=== PATIENT | male | born 1965 | race Caucasian/White ===

== ENCOUNTER 2023-03-17 19:32 | Emergency (ER) | payer OTHER, SELFPAY ==
[2023-03-17 19:35] VITALS: BP 167/88; PULSE 99; RESP 30; TEMP 37.6; O2SAT 96; BMI 42.6
--- NOTE | 2023-03-17 19:45 | XR_ITS ---
The [address] [address] Patient Name: ALEXANDER SANCHEZ MRN: [id number] date: 1965 Sex: M Assigned Patient Location: ER Current Patient Location: ER Accession/Order Number: [id number] Exam Date: 03/17/2023 20:11 Report Date: 03/17/2023 20:54 At the request of: AMBERLY STACK Procedure: XR hip RT min 2V IMAGES REVIEWED: XR hip RT min 2V COMPARISON: None available. CLINICAL INDICATION: atraumatic pain FINDINGS/IMPRESSION: Mild degenerative change right hip with chondrocalcinosis. No acute findings. Electronically authenticated by: KRYSTA VERDUZCO Date: 03/17/2023 20:54
--- NOTE | 2023-03-17 19:45 | XR_ITS ---
The [address] [address] Patient Name: ALEXANDER SANCHEZ MRN: [id number] date: 1965 Sex: M Assigned Patient Location: ER Current Patient Location: ER Accession/Order Number: [id number] Exam Date: 03/17/2023 20:11 Report Date: 03/17/2023 20:53 At the request of: AMBERLY STACK Procedure: XR lumbar spine 2-3V EXAM: XR lumbar spine 2-3V HISTORY: Low back pain and right leg pain for 2 weeks. COMPARISON: None. TECHNIQUE: AP and lateral views of the lumbar spine were obtained. FINDINGS: There is mild straightening of the normal lordotic curvature in the lumbar spine. The vertebral bodies are aligned and the vertebral body heights are intact. There are small osteophytes arising from the vertebral bodies. There is mild to moderate narrowing at the L5-S1 disc level and the disc spaces are otherwise relatively intact. Mild hypertrophic changes are seen in the facets throughout the mid and lower lumbar spine. The posterior elements are intact. The posterior soft tissues are intact. Vascular calcifications are seen anterior to the spine. XR/XR lumbar spine 2-3V IMPRESSION: There is no evidence of an acute fracture or anterior spondylolisthesis. Some degenerative changes are present, as described. Comparison with a previous study may be helpful in confirming the chronicity of these findings. Electronically authenticated by: EDWARD DUFF Date: 03/17/2023 20:53
--- NOTE | 2023-03-17 19:46 | ED.EXTPRO1 ---
HPI - Extremity Problem General Chief complaint: Extremity Problem, Nontraumatic Stated complaint: Lower Pain Time Seen by Provider: 03/17/23 19:39 Source: patient Mode of arrival: walk-in History of Present Illness HPI Narrative: 58-year-old male presents for complaints of right upper leg pain. There is a point on his buttock and then eight point on the posterior lower part of the upper leg. There's been no trauma and it's been there for two weeks. No calf pain or swelling. No foot pain or ankle pain. No numbness or weakness in his foot or ankle. He has back pain every morning. He was worried he might have a blood clot. No chest pain or shortness of breath. Related Data Home Medications Medication Instructions Recorded Confirmed tamsulosin 0.4 mg capsule 0.4 mg PO BID 03/17/23 03/17/23 Previous Rx's Medication Instructions Recorded hydrocodone 5 mg-acetaminophen 325 1 tab PO Q6H PRN pain 5 days #20 03/17/23 mg tablet tabs Allergies Allergy/AdvReac Type Severity Reaction Status Date / Time No Known Drug Allergies Allergy Verified 03/17/23 19:40 Review of Systems ROS Narrative A ten point review of systems is negative except as noted above. Exam Narrative Exam Narrative: Nurses note and vital signs reviewed and patient is not hypoxic. General: The patient appears mildly uncomfortable. Skin: Warm, dry, no pallor noted. There is no rash noted. Head: Normocephalic, atraumatic Eye: Normal conjunctiva, no drainage Ears, Nose, Mouth, and Throat: oral mucosa is moist. Nares patent. Cardiovascular: Regular Rate and Rhythm Respiratory: Patient is in no distress, no accessory muscle use, lungs are clear to auscultation, no wheezing, rales or rhonchi Back: non-tender, no bruise or rash or abrasion GI: soft and nontender Musculoskeletal: The patient has no evidence of calf tenderness, no pitting edema, symmetrical pulses noted bilaterally. no swelling in the right upper leg or right lower leg. No calf tenderness or swelling. He has no bruising or rash on his leg. Neurological: A&O, normal speech Psychiatric: Cooperative Constitutional Vital Signs, click to edit/add: Last Vital Signs Temp 99.7 F 03/17/23 19:35 Pulse 94 H 03/17/23 20:47 Resp 20 03/17/23 20:47 BP 126/68 03/17/23 20:47 Pulse Ox 97 03/17/23 20:47 O2 Del Method Room Air 03/17/23 20:47 Course Vital Signs Vital signs: Vital Signs Temperature 99.7 F 03/17/23 19:35 Pulse Rate 99 H 03/17/23 19:35 Respiratory Rate 30 H 03/17/23 19:35 Blood Pressure 167/88 H 03/17/23 19:35 Pulse Oximetry 96 03/17/23 19:35 Oxygen Delivery Method Room Air 03/17/23 19:35 Temperature 99.7 F 03/17/23 19:35 Pulse Rate 94 H 03/17/23 20:47 Respiratory Rate 20 03/17/23 20:47 Blood Pressure 126/68 03/17/23 20:47 Pulse Oximetry 97 03/17/23 20:47 Oxygen Delivery Method Room Air 03/17/23 20:47 MDM - Extremity (Nontraumatic) MDM Narrative Medical decision making narrative: x-rays show mild degenerative changes. D-dimer is elevated. We will bring the patient back in the morning for Doppler ultrasound. He was given subcutaneous Lovenox injection tonight and prescribed [place]. Treatment diagnosis and follow up are discussed with patient and his family. Differential Diagnosis Differential diagnosis: Likely other (sciatica, deep vein thrombosis, degenerative changes) Lab Data Attestation: I reviewed the patient's lab results. Labs: Lab Results 03/17/23 Range/Units 20:06 D-Dimer 3.62 H* (<=0.59) mg/L FEU Imaging Data x-ray of lumbar spine and hip: Radiologist's impression: ITS Impressions Lumbar Spine X-Ray 03/17/23 19:45 IMPRESSION: There is no evidence of an acute fracture or anterior spondylolisthesis. Some degenerative changes are present, as described. Comparison with a previous study may be helpful in confirming the chronicity of these findings. Electronically authenticated by: EDWARD DUFF Date: 03/17/2023 20:53 Discharge Plan Discharge Chief Complaint: Extremity Problem, Nontraumatic Clinical Impression: Leg pain, right Patient Disposition: Home, Self-Care Time of Disposition Decision: 21:07 Condition: Good Mode of Transportation: Private Vehicle Prescriptions / Home Meds: New hydrocodone-acetaminophen 5-325 mg tablet 1 tab PO Q6H PRN (Reason: pain) 5 Days Qty: 20 0RF No Action tamsulosin 0.4 mg capsule 0.4 mg PO BID Instructions: Leg Pain (ED) Additional Instructions: ultrasound of the leg in the morning. Arrive at 8:45 AM. It is scheduled for 9 AM. Stand Alone Forms: Portal Instructions Referrals: NEAL SUÁREZ [Primary Care Provider] - 1 week
[2023-03-17] MEDS: KETOROLAC TROMETHAMINE 60 MG/2 ML VIAL IM (19:58)
[2023-03-17 20:28] LABS: D Dimer 3.62 mg/L FEU (<=0.59)
--- NOTE | 2023-03-17 20:40 | PC.NURSE ---
Marianna from lab called with D-dimer of 3.62 Dr [email or web address]
[2023-03-17 20:47] VITALS: BP 126/68; PULSE 94; RESP 20; O2SAT 97
[2023-03-17] MEDS: ENOXAPARIN SODIUM 100 MG/ML SYRINGE 130 MG SUBQ (21:41)
[2023-03-17] MEDS: HYDROCODONE/ACET 5-325 MG TABLET 1 TAB PO (21:41)
== END 2023-03-17 21:47 | disposition home or self-care (01) ==
PROVIDERS: Emergency Provider Emergency Medicine; PCP Family Medicine
DX: M79.604 Pain in right leg (principal); R79.1 Abnormal coagulation profile
CPT/HCPCS: 36415; 72100; 73502; 85378; 96372; 99285; J1650; J1885

== ENCOUNTER 2023-03-18 08:50 | Outpatient (OUT) | payer OTHER, SELFPAY ==
--- OUTSIDE RECORDS SUMMARY | 2023-03-18 08:55 | XMS_ITS | CCD ---
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 Name Role Phone WEST, DR NEAL Hebert Consulting Unavailable SHAIKH JOHNSTON Admitting Unavailable SHAIKH JOHNSTON Attending Unavailable DR PAULO MEAD Consulting Unavailable DR SHIRA DRAKE Consulting Unavailable AMBERLY STACK Consulting Unavailable SHAIKH JOHNSTON Consulting Unavailable Problems Problem Classification Problem Date Documented Da te Episodic/Chronic Diabetes mellitus without complication (1 source) Hyperglycemia, unspecified; Translations: [HYPERGLYCEMIA UNSPECIFIED] Onset: 12-02-2020 Episodic Other circulatory disease (1 source) Elevated blood-pressure reading, without diagnosis of hypertension; Translations: [ELEVATED BP READING W/O DX HTN] Onset: 12-02-2020 Episodic Other nervous system disorders (1 source) Other chronic pain; Translations: [OTHER CHRONIC PAIN] Onset: 12-02-2020 Chronic Other nutritional; endocrine; and metabolic disorders (1 source) Obesity, unspecified; Translations: [OBESITY UNSPECIFIED] Onset: 12-02-2020 Chronic Other nutritional; endocrine; and metabolic disorders (1 source) Body mass index (BMI) 39.0-39.9, adult; Translations: [BODY MASS INDEX BMI 39.0-39.9 ADULT] Onset: 12-02-2020 Chronic Pneumonia (except that caused by tuberculosis or sexually transmitted disease) (1 source) Pneumonia (except that caused by tuberculosis or sexually transmitted disease); Translations: [PNEUMONIA D/T CORONAVIRUS DIS 2019] Onset: 12-02-2020 Respiratory failure; insufficiency; arrest (adult) (1 source) Acute respiratory failure with hypoxia; Translations: [ACUTE RESPIRATORY FAIL W/HYPOXIA] Onset: 12-02-2020 Episodic Spondylosis; intervertebral disc disorders; other back problems (1 source) Low back pain; Translations: [LOW BACK PAIN] Onset: 12-02-2020 Episodic Viral infection (3 sources) COVID-19; Translations: [COVID-19] Onset: 11-19-2020 Results Test Name Value Interpretation Reference Range Facil ity XR lumbar spine 2-3V*on XR lumbar spine 2-3V* [facility] [place] [address] [place] [address] XRay Report Signed Patient: Héctor Serra MR#: [id number] : 1965 Acct:[id number] Age/Sex: 56 / M ADM Date: 07/05/21 Loc: XDCLY Room: Type: [facility] Attending Dr: Neal Ferrell MD Ordering Provider: Neal Ferrell MD Date of Service: 07/05/21 XR/XR lumbar spine 2-3V*: M54.42 ([id number]) XR/XR pelvis 1-2V: M54.42 Copies to: Neal Ferrell MD Lumbar spine and pelvis 07/05/2021. CLINICAL DATA: Low back and left leg pain. LUMBAR SPINE FINDINGS: 2 views of the lumbar spine were obtained. Vertebral alignment is normal. Disc space narrowing and discovertebral degenerative changes are identified. 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 No acute vertebral fracture is visualized. XR/XR pelvis 1-2V IMPRESSION: Disc space narrowing and degenerative changes. No acute bony abnormality. PELVIS FINDINGS: A single frontal view of the pelvis was obtained. No acute fracture or dislocation is identified. The sacroiliac joints and the pubic symphysis are intact. Mild degenerative changes are seen at both hips. No bony erosion or destruction is visualized. IMPRESSION: Mild degenerative changes. No acute bony abnormality. Impression dictated by: Stephen Clarke Jr., M.D.07/05/2021 9:35 PM Dictation Location: [place] [address] Transcribed By: [facility] 07/05/212134 Dictated By: Stephen Clarke Jr, MD 07/05/212131 Signed By: 07/05/212134 Normal [facility] CBC AUTO DIFFon 11-25-2020 BASO # 0.1 103/ul Normal 0.0-0.1 [facility] Comment on above: Performed By: #### C BC #### [facility] [address] [place] [address] Dr. Afia Albarran Basophils/100 WBC (Bld) 0.7 % Normal 0.2-2.0 [facility] Comment on above: Performed By: #### C BC #### [facility] [address] [place] [address] Dr. Afia Albarran EO # 0.1 103/ul Normal 0.0-0.7 [facility] Comment on above: Performed By: #### C BC #### [facility] [address] [place] [address] Dr. Afia Albarran Eosinophils/100 WBC (Bld) 0.5 % Critically low 0.9-7.0 [facility] Comment on above: Performed By: #### C BC #### [facility] [address] [place] [address] Dr. Afia Albarran Erythrocyte distribution width (RBC) [Ratio] 13.2 % Normal 11.0-15.0 [facility] Comment on above: Performed By: #### C BC #### [facility] [address] [place] [address] Dr. Afia Albarran Hematocrit (Bld) [Volume fraction] 44.6 % Normal 42.0-54.0 [facility] Comment on above: Performed By: #### C BC #### [facility] [address] [place] [address] Dr. Afia Albarran Hemoglobin (Bld) [Mass/Vol] 15.0 g/dL Normal 14.0-18.0 [facility] Comment on above: Performed By: #### C BC #### [facility] [address] [place] [address] Dr. Afia Albarran IG # 0.92 10e3/ul Critically high 0.00-0.03 [facility] Comment on above: Performed By: #### C BC #### [facility] [address] [place] [address] Dr. Afia Albarran IG % 5.5 % Critically high 0.0-0.5 [facility] Comment on above: Performed By: #### C BC #### [facility] [address] [place] [address] Dr. Afia Albarran LYMPH # 1.4 103/ul Normal 1.2-3.8 [facility] Comment on above: Performed By: #### C BC #### [facility] [address] [place] [address] Dr. Afia Albarran Lymphocytes/100 WBC (Bld) 8.2 % Critically low 20.5-60.0 [facility] Comment on above: Performed By: #### C BC #### [facility] [address] [place] [address] Dr. Afia Albarran MANUAL DIFF REQ NO Normal [facility] Comment on above: Performed By: #### C BC #### [facility] [address] [place] [address] Dr. Afia Albarran MCH (RBC) [Entitic mass] 28.6 pg Normal 25.9-34.0 [facility] Comment on above: Performed By: #### C BC #### [facility] [address] [place] [address] Dr. Afia Albarran MCHC (RBC) [Mass/Vol] 33.6 g/dL Normal 29.9-35.2 [facility] Comment on above: Performed By: #### C BC #### [facility] [address] [place] [address] Dr. Afia Albarran MCV (RBC) [Entitic vol] 85.1 fL Normal 80.0-94.0 [facility] Comment on above: Performed By: #### C BC #### [facility] [address] [place] [address] Dr. Afia Albarran MONO # 1.0 103/ul Critically high 0.3-0.8 [facility] Comment on above: Performed By: #### C BC #### [facility] [address] [place] [address] Dr. Afia Albarran Monocytes/100 WBC (Bld) 6.1 % Normal 1.7-12.0 [facility] Comment on above: Performed By: #### C BC #### [facility] [address] [place] [address] [address] Afia Albarran NEUT # 13.1 103/ul Critically high 1.4-6.5 [facility] Comment on above: Performed By: #### C BC #### [facility] [address] [place] [address] [address] Afia Albarran Neutrophils/100 WBC (Bld) 79.0 % Critically high 43.0-75.0 [facility] Comment on above: Performed By: #### C BC #### [facility] [address] [place] [address] [address] Afia Albarran Platelet mean volume (Bld) [Entitic vol] 10.3 fL Normal 9.5-13.5 [facility] Comment on above: Performed By: #### C BC #### [facility] [address] [place] [address] Dr. Afia Albarran PLT 399 103/ul Normal 150-450 [facility] Comment on above: Performed By: #### C BC #### [facility] [address] [place] [address] [address] Afia Albarran RBC 5.24 106/ul Normal 4.70-6.10 [facility] Comment on above: Performed By: #### C BC #### [facility] [address] [place] [address] Dr. Afia Albarran WBC 16.6 103/ul Critically high 4.0-11.[address] [facility] Comment on above: Performed By: #### C BC #### [facility] [address] [place] [address] Dr. Afia Albarran PROF CHEM 8 (BAS METB)on Anion gap [Moles/Vol] 14.2 mmol/L Normal [facility] Comment on above: Performed By: #### B MP #### [facility] [address] [place] [address] Dr. Afia Albarran Calcium [Mass/Vol] 8.6 mg/dL Normal 8.4-10.2 [facility] Comment on above: Performed By: #### B MP #### [facility] [address] [place] [address] [address] Afia Albarran Chloride [Moles/Vol] 104 mmol/L Normal 98-107 [facility] Comment on above: Performed By: #### B MP #### [facility] [address] [place] [address] [address] Afia Albarran CO2 [Moles/Vol] 23.0 mmol/L Normal 22.0-30.[address] [facility] Comment on above: Performed By: #### B MP #### [facility] [address] [place] [address] [address] Afia Albarran Creatinine [Mass/Vol] 0.81 mg/dL Normal 0.66-1.25 [facility] Comment on above: Performed By: #### B MP #### [facility] [address] [place] [address] [address] Afia Albarran EGFR-AF [place] >60 Normal >=[address] [facility] Comment on above: Performed By: #### B MP #### [facility] [address] [place] [address] [address] Afia Albarran EGFR-NON AF [place] >60 Normal >=60 [facility] Comment on above: Performed By: #### B MP #### [facility] [address] [place] [address] [address] Afia Albarran Glucose [Mass/Vol] 127 mg/dL Critically high 74-106 [facility] Comment on above: Performed By: #### B MP #### [facility] [address] [place] [address] Dr. Afia Albarran Potassium [Moles/Vol] 4.2 mmol/L Normal 3.4-5.0 [facility] Comment on above: Performed By: #### B MP #### [facility] [address] [place] [address] Dr. Afia Albarran Sodium [Moles/Vol] 137 mmol/L Normal 137-145 [facility] Comment on above: Performed By: #### B MP #### [facility] [address] [place] [address] [address] Afia Albarran Urea nitrogen [Mass/Vol] 20.0 mg/dL Normal 9.0-20.0 [facility] Comment on above: Performed By: #### B MP #### [facility] [address] [place] [address] Dr. Afia Albarran Urea nitrogen/Creatinine [Mass ratio] 24.7 mg/mg Normal [facility] Comment on above: Performed By: #### B MP #### [facility] [address] [place] [address] Dr. Afia Albarran CBC W MANUAL DIFFon 11-25-19 21 ATYPICAL LYMPH # Normal The [facility] Comment on above: Performed By: #### B MP #### [facility] [address] [place] [address] Dr. Afia Albarran ATYPICAL LYMPH % Normal The [facility] Comment on above: Performed By: #### B MP #### [facility] [address] [place] [address] Dr. Afia Albarran BAND # Normal 0.0-0.3 [facility] Comment on above: Performed By: #### B MP #### [facility] [address] [place] [address] Dr. Afia Albarran BAND % Normal 0-5 [facility] Comment on above: Performed By: #### B MP #### [facility] [address] [place] [address] Dr. Afia Albarran BASOM # 0.00 103/ul Normal 0.00-0.10 [facility] Comment on above: Performed By: #### B MP #### [facility] [address] [place] [address] Dr. Afia Albarran BASOM % 0.0 % Critically low 0.2-2.0 The [facility] Comment on above: Performed By: #### B MP #### [facility] [address] [place] [address] Dr. Afia Albarran BLAST # Normal [facility] Comment on above: Performed By: #### B MP #### [facility] [address] [place] [address] Dr. Afia Albarran BLAST % Normal [facility] Comment on above: Performed By: #### B MP #### [facility] [address] [place] [address] [address] Afia Albarran CORRECTED WBC Normal 4.0-11.0 [facility] Comment on above: Performed By: #### B MP #### [facility] [address] [place] [address] [address] Afia Albarran EOS # 0.15 103/ul Normal 0.00-0.70 [facility] Comment on above: Performed By: #### B MP #### [facility] [address] [place] [address] [address] Afia Albarran EOS% 1.0 % Normal 0.9-7.0 [facility] Comment on above: Performed By: #### B MP #### [facility] [address] [place] [address] Dr. Afia Albarran HCT 44.8 % Normal 42.0-54.0 [facility] Comment on above: Performed By: #### B MP #### [facility] [address] [place] [address] [address] Afia Albarran HGB 15.2 g/dl Normal 14.0-18.0 [facility] Comment on above: Performed By: #### B MP #### [facility] [address] [place] [address] Dr. Afia Albarran LYMPHM # 1.06 103/ul Critically low 1.20-3.80 [facility] Comment on above: Performed By: #### B MP #### [facility] [address] [place] [address] [address] Afia Albarran LYMPHM% 7.0 % Critically low 20.5-60.0 The [facility] Comment on above: Performed By: #### B MP #### [facility] [address] [place] [address] [address] Afia Albarran MCH 28.7 pg Normal 25.9-34.0 [facility] Comment on above: Performed By: #### B MP #### [facility] [address] [place] [address] Dr. Afia Albarran MCHC 33.9 g/dl Normal 29.9-35.2 [facility] Comment on above: Performed By: #### B MP #### [facility] [address] [place] [address] Dr. Afia Albarran MCV 84.7 fL Normal 80.0-94.0 [facility] Comment on above: Performed By: #### B MP #### [facility] [address] [place] [address] Dr. Afia Albarran METAMYELOCYTE # Normal [facility] Comment on above: Performed By: #### B MP #### [facility] [address] [place] [address] Dr. Afia Albarran METAMYELOCYTE % Normal [facility] Comment on above: Performed By: #### B MP #### [facility] [address] [place] [address] Dr. Afia Albarran MONOM# 0.91 103/ul Critically high 0.30-0.80 [facility] Comment on above: Performed By: #### B MP #### [facility] [address] [place] [address] Dr. Afia Albarran MONOM% 6.0 % Normal 1.7-12.0 [facility] Comment on above: Performed By: #### B MP #### [facility] [address] [place] [address] Dr. Afia Albarran MPV 10.3 fL Normal 9.5-13.5 [facility] Comment on above: Performed By: #### B MP #### [facility] [address] [place] [address] Dr. Afia Albarran MYELOCYTE # Normal [facility] Comment on above: Performed By: #### B MP #### [facility] [address] [place] [address] Dr. Afia Albarran MYELOCYTE % Normal [facility] Comment on above: Performed By: #### B MP #### [facility] [address] [place] [address] Dr. Afia Albarran NRBC Normal [facility] Comment on above: Performed By: #### B MP #### [facility] [address] [id number] Afia Albarran PLT 408 103/ul Normal 150-450 [facility] Comment on above: Performed By: #### B MP #### [facility] [address] [id number] Afia Albarran POLYCHROMASIA SLIGHT Normal The [facility] Comment on above: Performed By: #### B MP #### [facility] [address] [id number] Afia Albarran RBC 5.29 106/ul Normal 4.70-6.10 [facility] Comment on above: Performed By: #### B MP #### [facility] [address] [place] [address] [address] Afia Albarran RDW 13.2 % Normal 11.0-15.0 [facility] Comment on above: Performed By: #### B MP #### [facility] [address] [address] [address] Afia Albarran SEG # 12.99 103/ul Critically high 1.40-6.50 The [facility] Comment on above: Performed By: #### B MP #### [facility] [address] [place], [place] [id number] Dr. Afia Albarran SEG % 86.0 % Critically high 43.0-75.0 The [facility] Comment on above: Performed By: #### B MP #### [facility] [address] [id number] Afia Albarran WBC 15.1 103/ul Critically high 4.0-11.[address] [facility] Comment on above: Performed By: #### B MP #### [facility] [address] [id number] Afia Albarran PROF CHEM 8 (BAS METB)on Anion gap [Moles/Vol] 12.4 mmol/L Normal [facility] Comment on above: Performed By: #### B MP #### [facility] [address] [place] [address] [address] Afia Albarran Calcium [Mass/Vol] 8.5 mg/dL Normal 8.4-10.2 [facility] Comment on above: Performed By: #### B MP #### [facility] [address] [place] [address] [address] Afia Albarran Chloride [Moles/Vol] 104 mmol/L Normal 98-107 [facility] Comment on above: Performed By: #### B MP #### [facility] [address] [address] [address] Afia Albarran CO2 [Moles/Vol] 23.9 mmol/L Normal 22.0-30.[address] [facility] Comment on above: Performed By: #### B MP #### [facility] [address] [place] [address] Dr. Afia Albarran Creatinine [Mass/Vol] 0.79 mg/dL Normal 0.66-1.25 [facility] Comment on above: Performed By: #### B MP #### [facility] [address] [place] [address] [address] Afia Albarran EGFR-AF [place] >60 Normal >=[address] [facility] Comment on above: Performed By: #### B MP #### [facility] [address] [place] [address] [address] Afia Albarran EGFR-NON AF [place] >60 Normal >=60 [facility] Comment on above: Performed By: #### B MP #### [facility] [address] [address] [address] Afia Albarran Glucose [Mass/Vol] 122 mg/dL Critically high 74-106 [facility] Comment on above: Performed By: #### B MP #### [facility] [address] [place] [address] [address] Afia Albarran Potassium [Moles/Vol] 4.3 mmol/L Normal 3.4-5.0 [facility] Comment on above: Performed By: #### B MP #### [facility] [address] [address] [address] Afia Albarran Sodium [Moles/Vol] 136 mmol/L Critically low 137-145 Th e [facility] Comment on above: Performed By: #### B MP #### [facility] [address] [place] [address] Dr. Afia Albarran Urea nitrogen [Mass/Vol] 20.0 mg/dL Normal 9.0-20.0 [facility] Comment on above: Performed By: #### B MP #### [facility] [address] [place] [address] Dr. Afia Albarran Urea nitrogen/Creatinine [Mass ratio] 25.3 mg/mg Normal [facility] Comment on above: Performed By: #### B MP #### [facility] [address] [place] [address] Dr. Afia Albarran CBC AUTO DIFFon 11-23-2020 BASO # 0.1 103/ul Normal 0.0-0.1 [facility] Comment on above: Performed By: #### C BC #### [facility] [address] [place] [address] Dr. Afia Albarran Basophils/100 WBC (Bld) 0.3 % Normal 0.2-2.0 [facility] Comment on above: Performed By: #### C BC #### [facility] [address] [place] [address] Dr. Afia Albarran EO # 0.0 103/ul Normal 0.0-0.7 [facility] Comment on above: Performed By: #### C BC #### [facility] [address] [place] [address] Dr. Afia Albarran Eosinophils/100 WBC (Bld) 0.0 % Critically low 0.9-7.0 [facility] Comment on above: Performed By: #### C BC #### [facility] [address] [place] [address] Dr. Afia Albarran Erythrocyte distribution width (RBC) [Ratio] 12.9 % Normal 11.0-15.0 [facility] Comment on above: Performed By: #### C BC #### [facility] [address] [place] [address] Dr. Afia Albarran Hematocrit (Bld) [Volume fraction] 44.2 % Normal 42.0-54.0 [facility] Comment on above: Performed By: #### C BC #### [facility] [address] [place] [address] Dr. Afia Albarran Hemoglobin (Bld) [Mass/Vol] 14.8 g/dL Normal 14.0-18.0 [facility] Comment on above: Performed By: #### C BC #### [facility] [address] [address] [address] Afia Albarran IG # 0.55 10e3/ul Critically high 0.00-0.03 [facility] Comment on above: Performed By: #### C BC #### [facility] [address] [place] [address] Dr. Afia Albarran IG % 3.6 % Critically high 0.0-0.5 [facility] Comment on above: Performed By: #### C BC #### [facility] [address] [place] [address] Dr. Afia Albarran LYMPH # 1.0 103/ul Critically low 1.2-3.8 [facility] Comment on above: Performed By: #### C BC #### [facility] [address] [place] [address] Dr. Afia Albarran Lymphocytes/100 WBC (Bld) 6.3 % Critically low 20.5-60.0 [facility] Comment on above: Performed By: #### C BC #### [facility] [address] [place] [address] Dr. Afia Albarran MANUAL DIFF REQ NO Normal [facility] Comment on above: Performed By: #### C BC #### [facility] [address] [place] [address] Dr. Afia Albarran MCH (RBC) [Entitic mass] 28.2 pg Normal 25.9-34.0 [facility] Comment on above: Performed By: #### C BC #### [facility] [address] [place] [address] Dr. Afia Albarran MCHC (RBC) [Mass/Vol] 33.5 g/dL Normal 29.9-35.2 [facility] Comment on above: Performed By: #### C BC #### [facility] [address] [place] [address] Dr. Afia Albarran MCV (RBC) [Entitic vol] 84.4 fL Normal 80.0-94.0 [facility] Comment on above: Performed By: #### C BC #### [facility] [address] [place] [address] Dr. Afia Albarran MONO # 0.9 103/ul Critically high 0.3-0.8 [facility] Comment on above: Performed By: #### C BC #### [facility] [address] [place] [address] Dr. Afia Albarran Monocytes/100 WBC (Bld) 6.0 % Normal 1.7-12.0 [facility] Comment on above: Performed By: #### C BC #### [facility] [address] [place] [address] Dr. Afia Albarran NEUT # 12.8 103/ul Critically high 1.4-6.5 [facility] Comment on above: Performed By: #### C BC #### [facility] [address] [place] [address] Dr. Afia Albarran Neutrophils/100 WBC (Bld) 83.8 % Critically high 43.0-75.0 [facility] Comment on above: Performed By: #### C BC #### [facility] [address] [place] [address] Dr. Afia Albarran Platelet mean volume (Bld) [Entitic vol] 10.1 fL Normal 9.5-13.5 [facility] Comment on above: Performed By: #### C BC #### [facility] [address] [place] [address] Dr. Afia Albarran PLT 400 103/ul Normal 150-450 [facility] Comment on above: Performed By: #### C BC #### [facility] [address] [place] [address] Dr. Afia Albarran RBC 5.24 106/ul Normal 4.70-6.10 [facility] Comment on above: Performed By: #### C BC #### [facility] [address] [address] [address] Afia Albarran WBC 15.3 103/ul Critically high 4.0-11.0 [facility] Comment on above: Performed By: #### C BC #### [facility] [address] [place] [address] Dr. Afia Albarran PROF CHEM 8 (BAS METB)on Anion gap [Moles/Vol] 11.7 mmol/L Normal [facility] Comment on above: Performed By: #### B MP #### [facility] [address] [place] [address] Dr. Afia Albarran Calcium [Mass/Vol] 8.4 mg/dL Normal 8.4-10.2 [facility] Comment on above: Performed By: #### B MP #### [facility] [address] [place] [address] Dr. Afia Albarran Chloride [Moles/Vol] 103 mmol/L Normal 98-107 [facility] Comment on above: Performed By: #### B MP #### [facility] [address] [place] [address] Dr. Afia Albarran CO2 [Moles/Vol] 24.7 mmol/L Normal 22.0-30.0 [facility] Comment on above: Performed By: #### B MP #### [facility] [address] [place] [address] Dr. Afia Albarran Creatinine [Mass/Vol] 0.81 mg/dL Normal 0.66-1.25 [facility] Comment on above: Performed By: #### B MP #### [facility] [address] [place] [address] Dr. Afia Albarran EGFR-AF [place]ER >60 Normal >=[address] [facility] Comment on above: Performed By: #### B MP #### [facility] [address] [place] [address] Dr. Afia Albarran EGFR-NON AF [place] >60 Normal >=60 [facility] Comment on above: Performed By: #### B MP #### [facility] [address] [address] [address] Afia Albarran Glucose [Mass/Vol] 187 mg/dL Critically high 74-106 T [facility] Comment on above: Performed By: #### B MP #### [facility] [address] [address] [address] Afia Albarran Potassium [Moles/Vol] 4.4 mmol/L Normal 3.4-5.0 [facility] Comment on above: Performed By: #### B MP #### [facility] [address] [place] [address] Dr. Afia Albarran Sodium [Moles/Vol] 135 mmol/L Critically low 137-145 [facility] Comment on above: Performed By: #### B MP #### [facility] [address] [place] [address] Dr. Afia Albarran Urea nitrogen [Mass/Vol] 19.0 mg/dL Normal 9.0-20.0 [facility] Comment on above: Performed By: #### B MP #### [facility] [address] [place] [address] Dr. Afia Albarran Urea nitrogen/Creatinine [Mass ratio] 23.5 mg/mg Normal [facility] Comment on above: Performed By: #### B MP #### [facility] [address] [place] [address] Dr. Afia Albarran CBC AUTO DIFFon 11-22-2020 BASO # 0.1 103/ul Normal 0.0-0.1 [facility] Comment on above: Performed By: #### C BC #### [facility] [address] [place] [address] Dr. Afia Albarran Basophils/100 WBC (Bld) 0.3 % Normal 0.2-2.0 [facility] Comment on above: Performed By: #### C BC #### [facility] [address] [place] [address] Dr. Afia Albarran EO # 0.0 103/ul Normal 0.0-0.7 [facility] Comment on above: Performed By: #### C BC #### [facility] [address] [address] [address] Afia Albarran Eosinophils/100 WBC (Bld) 0.0 % Critically low 0.9-7.0 [facility] Comment on above: Performed By: #### C BC #### [facility] [address] [address] [address] Afia Albarran Erythrocyte distribution width (RBC) [Ratio] 13.1 % Normal 11.0-15.0 [facility] Comment on above: Performed By: #### C BC #### [facility] [address] [place] [address] Dr. Afia Albarran Hematocrit (Bld) [Volume fraction] 44.7 % Normal 42.0-54.0 [facility] Comment on above: Performed By: #### C BC #### [facility] [address] [place] [address] Dr. Aifa Albarran Hemoglobin (Bld) [Mass/Vol] 14.4 g/dL Normal 14.0-18.0 [facility] Comment on above: Performed By: #### C BC #### [facility] [address] [place] [address] Dr. Afia Albarran IG # 0.21 10e3/ul Critically high 0.00-0.03 [facility] Comment on above: Performed By: #### C BC #### [facility] [address] [place] [address] Dr. Afia Albarran IG % 1.4 % Critically high 0.0-0.5 [facility] Comment on above: Performed By: #### C BC #### [facility] [address] [place] [address] Dr. Afia Albarran LYMPH # 0.7 103/ul Critically low 1.2-3.8 [facility] Comment on above: Performed By: #### C BC #### [facility] [address] [place] [address] Dr. Afia Albarran Lymphocytes/100 WBC (Bld) 4.8 % Critically low 20.5-60.0 [facility] Comment on above: Performed By: #### C BC #### [facility] [address] [place] [address] Dr. Afia Albarran MANUAL DIFF REQ NO Normal [facility] Comment on above: Performed By: #### C BC #### [facility] [address] [place] [address] Dr. Afia Albarran MCH (RBC) [Entitic mass] 28.2 pg Normal 25.9-34.0 [facility] Comment on above: Performed By: #### C BC #### [facility] [address] [place] [address] Dr. Afia Albarran MCHC (RBC) [Mass/Vol] 32.2 g/dL Normal 29.9-35.2 [facility] Comment on above: Performed By: #### C BC #### [facility] [address] [place] [address] Dr. Afia Albarran MCV (RBC) [Entitic vol] 87.5 fL Normal 80.0-94.0 [facility] Comment on above: Performed By: #### C BC #### [facility] [address] [place] [address] Dr. Afia Albarran MONO # 0.9 103/ul Critically high 0.3-0.8 [facility] Comment on above: Performed By: #### C BC #### [facility] [address] [place] [address] Dr. Afia Albarran Monocytes/100 WBC (Bld) 6.0 % Normal 1.7-12.0 [facility] Comment on above: Performed By: #### C BC #### [facility] [address] [place] [address] Dr. Afia Albarran NEUT # 12.7 103/ul Critically high 1.4-6.[address] [facility] Comment on above: Performed By: #### C BC #### [facility] [address] [place] [address] Dr. Afia Albarran Neutrophils/100 WBC (Bld) 87.5 % Critically high 43.0-75.0 [facility] Comment on above: Performed By: #### C BC #### [facility] [address] [place] [address] Dr. Afia Albarran Platelet mean volume (Bld) [Entitic vol] 10.5 fL Normal 9.5-13.5 [facility] Comment on above: Performed By: #### C BC #### [facility] [address] [address] [address] Afia Albarran PLT 345 103/ul Normal 150-450 [facility] Comment on above: Performed By: #### C BC #### [facility] [address] [address] [address] Afia Albarran RBC 5.11 106/ul Normal 4.70-6.10 [facility] Comment on above: Performed By: #### C BC #### [facility] [address] [place] [address] Dr. Afia Albarran WBC 14.5 103/ul Critically high 4.0-11.[address] [facility] Comment on above: Performed By: #### C BC #### [facility] [address] [place] [address] Dr. Afia Albarran PROF CHEM 8 (BAS METB)on Anion gap [Moles/Vol] 12.0 mmol/L Normal [facility] Comment on above: Performed By: #### B MP #### [facility] [address] [place] [address] Dr. Afia Albarran Calcium [Mass/Vol] 8.8 mg/dL Normal 8.4-10.2 [facility] Comment on above: Performed By: #### B MP #### [facility] [address] [place] [address] Dr. Afia Albarran Chloride [Moles/Vol] 104 mmol/L Normal 98-107 [facility] Comment on above: Performed By: #### B MP #### [facility] [address] [place] [address] Dr. Afia Albarran CO2 [Moles/Vol] 25.2 mmol/L Normal 22.0-30.[address] [facility] Comment on above: Performed By: #### B MP #### [facility] [address] [address] [address] Afia Albarran Creatinine [Mass/Vol] 0.94 mg/dL Normal 0.66-1.25 [facility] Comment on above: Performed By: #### B MP #### [facility] [address] [address] [address] Afia Albarran EGFR-AF [place] >60 Normal >=60 [facility] Comment on above: Performed By: #### B MP #### [facility] [address] [address] [address] Afia Albarran EGFR-NON AF [place] >60 Normal >=60 [facility] Comment on above: Performed By: #### B MP #### [facility] [address] [address] [address] Afia Albarran Glucose [Mass/Vol] 236 mg/dL Critically high 74-106 T [facility] Comment on above: Performed By: #### B MP #### [facility] [address] [address] [address] Afia Albarran Potassium [Moles/Vol] 4.2 mmol/L Normal 3.4-5.0 [facility] Comment on above: Performed By: #### B MP #### [facility] [address] [address] [address] Afia Albarran Sodium [Moles/Vol] 137 mmol/L Normal 137-145 [facility] Comment on above: Performed By: #### B MP #### [facility] [address] [address] [address] Afia Albarran Urea nitrogen [Mass/Vol] 21.0 mg/dL Critically high 9.0-20.0 [facility] Comment on above: Performed By: #### B MP #### [facility] [address] [place] [address] Dr. Afia Albarran Urea nitrogen/Creatinine [Mass ratio] 22.3 mg/mg Normal [facility] Comment on above: Performed By: #### B MP #### [facility] [address] [address] [address] Afia Albarran XR CHEST 1 Von 11-22-2020 XR CHEST 1 V EXAM: XR CHEST 1 V HISTORY: SHORTNESS OF BREATH COMPARISON: 11/19/2020 TECHNIQUE: AP erect portable FINDINGS: LUNGS: Moderate multifocal opacities, slightly improved on the right, stable on the left VASCULATURE: No increased pulmonary vasculature. PLEURA: No pneumothorax, effusion, or pleural thickening. CARDIAC: No cardiomegaly or cardiac silhouette abnormality. MEDIASTINUM: No visible mass or adenopathy. BONES: No fracture or visible bone lesion. OTHER: EKG wires IMPRESSION: Multifocal pneumonia, slightly improved on the right, stable on the left Electronically authenticated by: NEAL REDMOND Date: 2020-11-22 11:20 Normal [facility] CBC W MANUAL DIFFon 11-22-19 21 ATYPICAL LYMPH # 0.35 103/ul Normal [facility] Comment on above: Performed By: #### C BCMAN #### [facility] [address] [place] [address] Dr. Afia Albarran ATYPICAL LYMPH % 3 % Normal [facility] Comment on above: Performed By: #### C BCMAN #### [facility] [address] [place] [address] Dr. Afia Albarran BAND # 0.4 103/ul Critically high 0.0-0.3 [facility] Comment on above: Performed By: #### C BCMAN #### [facility] [address] [place] [address] Dr. Afia Albarran BAND % 3 % Normal 0-5 [facility] Comment on above: Performed By: #### C BCMAN #### [facility] [address] [place] [address] Dr. Afia Albarran BASOM # 0.00 103/ul Normal 0.00-0.10 [facility] Comment on above: Performed By: #### C BCMAN #### [facility] [address] [place] [address] Dr. Afia Albarran BASOM % 0.0 % Critically low 0.2-2.0 [facility] Comment on above: Performed By: #### C BCMAN #### [facility] [address] [place] [address] Dr. Afia Albarran BLAST # Normal [facility] Comment on above: Performed By: #### C EUFEMIA #### [facility] [address] [address] [address] Afia Ablarran BLAST % Normal [facility] Comment on above: Performed By: #### C EUFEMIA #### [facility] [address] [address] [address] Afia Albarran CORRECTED WBC Normal 4.0-11.0 [facility] Comment on above: Performed By: #### C EUFEMIA #### [facility] [address] [address] [address] Afia Albarran EOS # 0.00 103/ul Normal 0.00-0.70 [facility] Comment on above: Performed By: #### C EUFEMIA #### [facility] [address] [place] [address] Dr. Afia Albarran EOS% 0.0 % Critically low 0.9-7.0 [facility] Comment on above: Performed By: #### C EUFEMIA #### [facility] [address] [place] [address] Dr. Afia Albarran HCT 43.3 % Normal 42.0-54.0 [facility] Comment on above: Performed By: #### C EUFEMIA #### [facility] [address] [place] [address] Dr. Afia Albarran HGB 14.1 g/dl Normal 14.0-18.0 [facility] Comment on above: Performed By: #### C EUFEMIA #### [facility] [address] [place] [address] Dr. Afia Albarran LYMPHM # 0.59 103/ul Critically low 1.20-3.80 [facility] Comment on above: Performed By: #### C EUFEMIA #### [facility] [address] [place] [address] Dr. Afia Albarran LYMPHM% 5.0 % Critically low 20.5-60.0 [facility] Comment on above: Performed By: #### C EUFEMIA #### [facility] [address] [address] [address] Afia Albarran MCH 28.4 pg Normal 25.9-34.0 [facility] Comment on above: Performed By: #### C EUFEMIA #### [facility] [address] [place] [address] Dr. Afia Albarran MCHC 32.6 g/dl Normal 29.9-35.2 [facility] Comment on above: Performed By: #### C EUFEMIA #### [facility] [address] [place] [address] Dr. Afia Albarran MCV 87.1 fL Normal 80.0-94.0 [facility] Comment on above: Performed By: #### C BCABEL #### [facility] [address] [place] [address] Dr. Afia Albarran METAMYELOCYTE # Normal [facility] Comment on above: Performed By: #### C EUFEMIA #### [facility] [address] [place] [address] Dr. Afia Albarran METAMYELOCYTE % Normal [facility] Comment on above: Performed By: #### C EUFEMIA #### [facility] [address] [place] [address] Dr. Afia Albarran MONOM# 0.83 103/ul Critically high 0.30-0.80 [facility] Comment on above: Performed By: #### C EUFEMIA #### [facility] [address] [place] [address] Dr. Afia Albarran MONOM% 7.0 % Normal 1.7-12.0 [facility] Comment on above: Performed By: #### C EUFEMIA #### [facility] [address] [place] [address] Dr. Afia Albarran MPV 11.4 fL Normal 9.5-13.5 [facility] Comment on above: Performed By: #### C EUFEMIA #### [facility] [address] [place] [address] Dr. Afia Albarran MYELOCYTE # Normal [facility] Comment on above: Performed By: #### C EUEFMIA #### [facility] [address] [address] [address] Afia Albarran MYELOCYTE % Normal [facility] Comment on above: Performed By: #### C EUFEMIA #### [facility] [address] [place] [address] Dr. Afia Albarran NRBC Normal [facility] Comment on above: Performed By: #### C EUFEMIA #### [facility] [address] [id number] [address] Afia Albarran PLT 239 103/ul Normal 150-450 [facility] Comment on above: Performed By: #### C EUFEMIA #### [facility] [address] [address] [address] Afia Albarran RBC 4.97 106/ul Normal 4.70-6.10 [facility] Comment on above: Performed By: #### C EUFEMIA #### [facility] [address] [place] [address] Dr. Afia Albarran RDW 13.2 % Normal 11.0-15.0 [facility] Comment on above: Performed By: #### C EUFEMIA #### [facility] [address] [place] [address] Dr. Afia Albarran SEG # 9.68 103/ul Critically high 1.40-6.50 [facility] Comment on above: Performed By: #### C EUFEMIA #### [facility] [address] [place], [place] [id number] Dr. Afia Albarran SEG % 82.0 % Critically high 43.0-75.0 [facility] Comment on above: Performed By: #### C EUFEMIA #### [facility] [address] [place] [address] Dr. Afia Albarran WBC 11.8 103/ul Critically high 4.0-11.[address] [facility] Comment on above: Performed By: #### C EUFEMIA #### [facility] [address] [place] [address] Dr. Afia Albarran PROF CHEM 8 (BAS METB)on Anion gap [Moles/Vol] 11.2 mmol/L Normal [facility] Comment on above: Performed By: #### B MP #### [facility] [address] [address] [address] Afia Albarran Calcium [Mass/Vol] 8.7 mg/dL Normal 8.4-10.2 [facility] Comment on above: Performed By: #### B MP #### [facility] [address] [address] [address] Afia Albarran Chloride [Moles/Vol] 104 mmol/L Normal 98-107 [facility] Comment on above: Performed By: #### B MP #### [facility] [address] [address] [address] Afia Albarran CO2 [Moles/Vol] 25.9 mmol/L Normal 22.0-30.0 [facility] Comment on above: Performed By: #### B MP #### [facility] [address] [place] [address] Dr. Afia Albarran Creatinine [Mass/Vol] 0.90 mg/dL Normal 0.66-1.25 [facility] Comment on above: Performed By: #### B MP #### [facility] [address] [address] [address] Afia Albarran EGFR-AF [place]ER >60 Normal >=60 [facility] Comment on above: Performed By: #### B MP #### [facility] [address] [place] [address] Dr. Afia Albarran EGFR-NON AF [place] >60 Normal >=60 [facility] Comment on above: Performed By: #### B MP #### [facility] [address] [address] [address] Afia Albarran Glucose [Mass/Vol] 224 mg/dL Critically high 74-106 [facility] Comment on above: Performed By: #### B MP #### [facility] [address] [address] [address] Afia Albarran Potassium [Moles/Vol] 4.1 mmol/L Normal 3.4-5.0 [facility] Comment on above: Performed By: #### B MP #### [facility] [address] [address] [address] Afia Albarran Sodium [Moles/Vol] 137 mmol/L Normal 137-145 [facility] Comment on above: Performed By: #### B MP #### [facility] [address] [address] [address] Afia Albarran Urea nitrogen [Mass/Vol] 23.0 mg/dL Critically high 9.0-20.0 [facility] Comment on above: Performed By: #### B MP #### [facility] [address] [place] [address] Dr. Afia Albarran Urea nitrogen/Creatinine [Mass ratio] 25.6 mg/mg Normal [facility] Comment on above: Performed By: #### B MP #### [facility] [address] [place] [address] Dr. Afia Albarran CBC W MANUAL DIFFon 11-21-19 21 ATYPICAL LYMPH # 0.10 103/ul Normal [facility] Comment on above: Performed By: #### C BCMAN #### [facility] [address] [place] [address] Dr. Afia Albarran ATYPICAL LYMPH % 2 % Normal [facility] Comment on above: Performed By: #### C BCMAN #### [facility] [address] [place] [address] Dr. Afia Albarran BAND # 0.1 103/ul Normal 0.0-0.3 [facility] Comment on above: Performed By: #### C EUFEMIA #### [facility] [address] [place] [address] Dr. Afia Albarran BAND % 2 % Normal 0-5 [facility] Comment on above: Performed By: #### C BCMAN #### [facility] [address] [place] [address] Dr. Afia Albarran BASOM # 0.00 103/ul Normal 0.00-0.10 [facility] Comment on above: Performed By: #### C EUFEMIA #### [facility] [address] [place] [address] Dr. Afia Albarran BASOM % 0.0 % Critically low 0.2-2.0 [facility] Comment on above: Performed By: #### C EUFEMIA #### [facility] [address] [address] [address] Afia Albarran BLAST # Normal [facility] Comment on above: Performed By: #### C EUFEMIA #### [facility] [address] [address] [address] Afia Albarran BLAST % Normal [facility] Comment on above: Performed By: #### C EUFEMIA #### [facility] [address] [place] [address] Dr. Afia Albarran CORRECTED WBC Normal 4.0-11.0 [facility] Comment on above: Performed By: #### C EUFEMIA #### [facility] [address] [place] [address] Dr. Afia Albarran EOS # 0.00 103/ul Normal 0.00-0.70 [facility] Comment on above: Performed By: #### C EUFEMIA #### [facility] [address] [place] [address] Dr. Afia Albarran EOS% 0.0 % Critically low 0.9-7.0 [facility] Comment on above: Performed By: #### C EUFEMIA #### [facility] [address] [place] [address] Dr. Afia Albarran HCT 42.6 % Normal 42.0-54.0 [facility] Comment on above: Performed By: #### C EUFEMIA #### [facility] [address] [place] [address] Dr. Afia Albarran HGB 13.8 g/dl Critically low 14.0-18.0 [facility] Comment on above: Performed By: #### C EUFEMIA #### [facility] [address] [place] [address] Dr. Afia Albarran LYMPHM # 0.20 103/ul Critically low 1.20-3.80 [facility] Comment on above: Performed By: #### C EUFEMIA #### [facility] [address] [place] [address] Dr. Afia Albarran LYMPHM% 4.0 % Critically low 20.5-60.0 [facility] Comment on above: Performed By: #### C EUFEMIA #### [facility] [address] [place] [address] Dr. Afia Albarran MCH 28.3 pg Normal 25.9-34.0 [facility] Comment on above: Performed By: #### C EUFEMIA #### [facility] [address] [place] [address] Dr. Afia Albarran MCHC 32.4 g/dl Normal 29.9-35.2 [facility] Comment on above: Performed By: #### C EUFEMIA #### [facility] [address] [place] [address] Dr. Afia Albarran MCV 87.3 fL Normal 80.0-94.0 [facility] Comment on above: Performed By: #### C EUFEMIA #### [facility] [address] [place] [address] Dr. Afia Albarran METAMYELOCYTE # Normal [facility] [facility] Comment on above: Performed By: #### C EUFEMIA #### [facility] [address] [place] [address] Dr. Afia Albarran METAMYELOCYTE % Normal [facility] Comment on above: Performed By: #### C EUFEMIA #### [facility] [address] [place] [address] Dr. Afia Albarran MONOM# 0.61 103/ul Normal 0.30-0.80 [facility] Comment on above: Performed By: #### C EUFEMIA #### [facility] [address] [place] [address] Dr. Afia Albarran MONOM% 12.0 % Normal 1.7-12.0 [facility] Comment on above: Performed By: #### C EUFEMIA #### [facility] [address] [place] [address] Dr. Afia Albarran MPV 10.3 fL Normal 9.5-13.5 [facility] Comment on above: Performed By: #### C EUFEMIA #### [facility] [address] [place] [address] Dr. Afia Albarran MYELOCYTE # Normal [facility] Comment on above: Performed By: #### C EUFEMIA #### [facility] [address] [place] [address] Dr. Afia Albarran MYELOCYTE % Normal [facility] Comment on above: Performed By: #### C EUFEMIA #### [facility] [address] [place] [address] Dr. Afia Albarran NRBC Normal [facility] Comment on above: Performed By: #### C EUFEMIA #### [facility] [address] [address] [address] Afia Albarran PLT 226 103/ul Normal 150-450 [facility] Comment on above: Performed By: #### C EUFEMIA #### [facility] [address] [place] [address] Dr. Afia Albarran RBC 4.88 106/ul Normal 4.70-6.10 [facility] Comment on above: Performed By: #### C EUFEMIA #### [facility] [address] [place] [address] Dr. Afia Albarran RDW 13.2 % Normal 11.0-15.0 [facility] Comment on above: Performed By: #### C EUFEMIA #### [facility] [address] [place] [address] Dr. Afia Albarran SEG # 4.08 103/ul Normal 1.40-6.50 [facility] Comment on above: Performed By: #### C EUFEMIA #### [facility] [address] [place] [address] Dr. Afia Albarran SEG % 80.0 % Critically high 43.0-75.0 [facility] Comment on above: Performed By: #### C EUFEMIA #### [facility] [address] [place] [address] Dr. Afia Albarran WBC 5.1 103/ul Normal 4.0-11.0 [facility] Comment on above: Performed By: #### C EUFEMIA #### [facility] [address] [place] [address] Dr. Afia Albarran PROF CHEM 8 (BAS METB)on Anion gap [Moles/Vol] 9.0 mmol/L Normal [facility] Comment on above: Performed By: #### B MP #### [facility] [address] [address] [address] Afia Albarran Calcium [Mass/Vol] 8.3 mg/dL Critically low 8.4-10.2 [facility] Comment on above: Performed By: #### B MP #### [facility] [address] [address] [address] Afia Albarran Chloride [Moles/Vol] 100 mmol/L Normal 98-107 [facility] Comment on above: Performed By: #### B MP #### [facility] [address] [place] [address] Dr. Afia Albarran CO2 [Moles/Vol] 29.7 mmol/L Normal 22.0-30.0 [facility] Comment on above: Performed By: #### B MP #### [facility] [address] [place] [address] Dr. Afia Albarran Creatinine [Mass/Vol] 1.02 mg/dL Normal 0.66-1.25 [facility] Comment on above: Performed By: #### B MP #### [facility] [address] [place] [address] Dr. Afia Albarran EGFR-AF [place]ER >60 Normal >=60 [facility] Comment on above: Performed By: #### B MP #### [facility] [address] [place] [address] Dr. Afia Albarran EGFR-NON AF [place] >60 Normal >=60 [facility] Comment on above: Performed By: #### B MP #### [facility] [address] [address] [address] Afia Albarran Glucose [Mass/Vol] 196 mg/dL Critically high 74-106 [facility] Comment on above: Performed By: #### B MP #### [facility] [address] [place] [address] Dr. Afia Albarran Potassium [Moles/Vol] 3.7 mmol/L Normal 3.4-5.0 [facility] Comment on above: Performed By: #### B MP #### [facility] [address] [place] [address] Dr. Afia Albarran Sodium [Moles/Vol] 135 mmol/L Critically low 137-145 [facility] Comment on above: Performed By: #### B MP #### [facility] [address] [place] [address] Dr. Afia Albarran Urea nitrogen [Mass/Vol] 23.0 mg/dL Critically high 9.0-20.0 [facility] Comment on above: Performed By: #### B MP #### [facility] [address] [place] [address] Dr. Afia Albarran Urea nitrogen/Creatinine [Mass ratio] 22.5 mg/mg Normal [facility] Comment on above: Performed By: #### B MP #### [facility] [address] [place] [address] Dr. Afia Albarran CBC W MANUAL DIFFon 11-20-19 21 ATYPICAL LYMPH # 0.23 103/ul Normal [facility] Comment on above: Performed By: #### C EUFEMIA #### [facility] [address] [place] [address] Dr. Afia Albarran ATYPICAL LYMPH % 3 % Normal [facility] Comment on above: Performed By: #### C ALICIAMAN #### [facility] [address] [place] [address] Dr. Afia Albarran BAND # 0.1 103/ul Normal 0.0-0.3 [facility] Comment on above: Performed By: #### C BCMAN #### [facility] [address] [place] [address] Dr. Afia Albarran BAND % 1 % Normal 0-5 [facility] Comment on above: Performed By: #### C ALICIAMAN #### [facility] [address] [place] [address] Dr. Afia Albarran BASOM # 0.00 103/ul Normal 0.00-0.10 [facility] Comment on above: Performed By: #### C EUFEMIA #### [facility] [address] [address] [address] Afia Albarran BASOM % 0.0 % Critically low 0.2-2.0 [facility] Comment on above: Performed By: #### C BCMAN #### [facility] [address] [address] [address] Afia Albarran BLAST # Normal [facility] Comment on above: Performed By: #### C BCMAN #### [facility] [address] [address] [address] Afia Albarran BLAST % Normal [facility] Comment on above: Performed By: #### C BCABEL #### [facility] [address] [place] [address] Dr. Afia Albarran CORRECTED WBC Normal 4.0-11.0 [facility] Comment on above: Performed By: #### C BCABEL #### [facility] [address] [place] [address] Dr. Afia Albarran EOS # 0.00 103/ul Normal 0.00-0.70 [facility] Comment on above: Performed By: #### C BCABEL #### [facility] [address] [place] [address] Dr. Afia Albarran EOS% 0.0 % Critically low 0.9-7.0 [facility] Comment on above: Performed By: #### C BCABEL #### [facility] [address] [place] [address] Dr. Afia Albarran HCT 41.8 % Critically low 42.0-54.0 [facility] Comment on above: Performed By: #### C BCMAN #### [facility] [address] [place] [address] Dr. Afia Albarran HGB 14.1 g/dl Normal 14.0-18.0 [facility] Comment on above: Performed By: #### C BCMAN #### [facility] [address] [place] [address] Dr. Afia Albarran LYMPHM # 0.53 103/ul Critically low 1.20-3.80 [facility] Comment on above: Performed By: #### C EUFEMIA #### [facility] [address] [address] [address] Afia Albarran LYMPHM% 7.0 % Critically low 20.5-60.0 [facility] Comment on above: Performed By: #### C EUFEMIA #### [facility] [address] [place] [address] Dr. Afia Albarran MCH 28.3 pg Normal 25.9-34.0 [facility] Comment on above: Performed By: #### C EUFEMIA #### [facility] [address] [address] [address] Afia Albarran MCHC 33.7 g/dl Normal 29.9-35.2 [facility] Comment on above: Performed By: #### C EUFEMIA #### [facility] [address] [place] [address] Dr. Afia Albarran MCV 83.8 fL Normal 80.0-94.0 [facility] Comment on above: Performed By: #### C EUFEMIA #### [facility] [address] [place] [address] Dr. Afia Albarran METAMYELOCYTE # Normal [facility] Comment on above: Performed By: #### C EUFEMIA #### [facility] [address] [place] [address] Dr. Afia Albarran METAMYELOCYTE % Normal [facility] Comment on above: Performed By: #### C EUFEMIA #### [facility] [address] [place] [address] Dr. Afia Albarran MONOM# 0.53 103/ul Normal 0.30-0.80 [facility] Comment on above: Performed By: #### C EUFEMIA #### [facility] [address] [place] [address] Dr. Afia Albarran MONOM% 7.0 % Normal 1.7-12.0 [facility] Comment on above: Performed By: #### C EUFEMIA #### [facility] [address] [place] [address] Dr. Afia Albarran MPV 10.1 fL Normal 9.5-13.5 [facility] Comment on above: Performed By: #### C BCABEL #### [facility] [address] [address] [address] Afia Albarran MYELOCYTE # Normal [facility] Comment on above: Performed By: #### C EUFEMIA #### [facility] [address] [address] [address] Afia Albarran MYELOCYTE % Normal [facility] Comment on above: Performed By: #### C EUFEMIA #### [facility] [address] [address] [address] Afia Albarran NRBC Normal [facility] Comment on above: Performed By: #### C EUFEMIA #### [facility] [address] [address] [address] Afia Albarran PLT 204 103/ul Normal 150-450 [facility] Comment on above: Performed By: #### C EUFEMIA #### [facility] [address] [place] [address] Dr. Afia Albarran RBC 4.99 106/ul Normal 4.70-6.10 [facility] Comment on above: Performed By: #### C EUFEMIA #### [facility] [address] [place] [address] Dr. Afia Albarran RDW 13.2 % Normal 11.0-15.0 [facility] Comment on above: Performed By: #### C EUFEMIA #### [facility] [address] [place] [address] Dr. Afia Albarran SEG # 6.15 103/ul Normal 1.40-6.50 [facility] Comment on above: Performed By: #### C EUFEMIA #### [facility] [address] [address] [address] Afia Albarran SEG % 82.0 % Critically high 43.0-75.0 [facility] Comment on above: Performed By: #### C EUFEMIA #### [facility] [address] [place] [address] Dr. Afia Albarran WBC 7.5 103/ul Normal 4.0-11.0 [facility] Comment on above: Performed By: #### C ALICIAMAN #### [facility] [address] [place] [address] Dr. Afia Albarran CULTURE BLOODon 11-19-2020 Microscopic examination of blood, culture Culture Observations: NO GROWTH AT 5 DAYS. Normal [facility] Comment on above: Performed By: #### B MP #### [facility] [address] [place] [address] Dr. Afia Albarran Microscopic examination of blood, culture Culture Observations: NO GROWTH AT 5 DAYS. Normal [facility] Comment on above: Performed By: #### B MP #### [facility] [address] [place] [address] Dr. Afia Albarran LACTATE/LACTIC ACIDon 2020 Lactate [Moles/Vol] 1.7 mmol/L Normal 0.7-2.0 [facility] Comment on above: Performed By: #### B MP #### [facility] [address] [place] [address] Dr. Afia Albarran PROF CHEM 8 (BAS METB)on Anion gap [Moles/Vol] 14.6 mmol/L Normal [facility] Comment on above: Performed By: #### B MP #### [facility] [address] [place] [address] Dr. Afia Albarran Calcium [Mass/Vol] 8.0 mg/dL Critically low 8.4-10.2 [facility] Comment on above: Performed By: #### B MP #### [facility] [address] [place] [address] Dr. Afia Albarran Chloride [Moles/Vol] 97 mmol/L Critically low 98-107 [facility] Comment on above: Performed By: #### B MP #### [facility] [address] [place] [address] Dr. Afia Albarran CO2 [Moles/Vol] 26.0 mmol/L Normal 22.0-30.0 [facility] Comment on above: Performed By: #### B MP #### [facility] [address] [place] [address] Dr. Afia Albarran Creatinine [Mass/Vol] 0.97 mg/dL Normal 0.66-1.25 [facility] Comment on above: Performed By: #### B MP #### [facility] [address] [address] [address] Afia Albarran EGFR-AF [place] >60 Normal >=60 [facility] Comment on above: Performed By: #### B MP #### [facility] [address] [address] [address] Afia Albarran EGFR-NON AF [place] >60 Normal >=60 [facility] Comment on above: Performed By: #### B MP #### [facility] [address] [address] [address] Afia Albarran Glucose [Mass/Vol] 129 mg/dL Critically high 74-106 [facility] Comment on above: Performed By: #### B MP #### [facility] [address] [place] [address] Dr. Afia Albarran Potassium [Moles/Vol] 3.6 mmol/L Normal 3.4-5.0 [facility] Comment on above: Performed By: #### B MP #### [facility] [address] [place] [address] Dr. Afia Albarran Sodium [Moles/Vol] 134 mmol/L Critically low 137-145 [facility] Comment on above: Performed By: #### B MP #### [facility] [address] [place] [address] Dr. Afia Albarran Urea nitrogen [Mass/Vol] 13.0 mg/dL Normal 9.0-20.0 [facility] Comment on above: Performed By: #### B MP #### [facility] [address] [address] [address] Afia Albarran Urea nitrogen/Creatinine [Mass ratio] 13.4 mg/mg Normal [facility] Comment on above: Performed By: #### B MP #### [facility] [address] [place] [address] Dr. Afia Albarran XR CHEST 1 Von 11-19-2020 XR CHEST 1 V EXAMINATION: XR CHEST 1 V HISTORY: SHORTNESS OF BREATH COMPARISON: XR chest 05/05/2009 FINDINGS: LUNGS: Extensive patchy and confluent opacities throughout both lungs. VASCULATURE: No increased pulmonary vasculature. PLEURA: No pneumothorax, effusion, or pleural thickening. CARDIAC: No cardiomegaly or cardiac silhouette abnormality. MEDIASTINUM: No visible mass or adenopathy. BONES: No fracture or visible bone lesion. OTHER: Negative. IMPRESSION: 1. Marked bilateral pulmonary infiltrates suggestive of pneumonia. Electronically authenticated by: PAULO MEAD Date: 2020-11-19 11:13 Normal [facility] Encounters Encounter Date Encounter Type Care Provider Facility Start: 11-19-2020 End: 11-25-2020 Evaluation and management of inpatient DR NEAL Hebert [facility] Facility: Payers Date Payer Category Payer Unknown [id number] 1961 Unknown [id number] Summary Purpose Family History No Family History Records FoundNo Family History Records Found Advance Directives No Advanced Directives Records FoundNo Advanced Directives Records Found Additional Source Comments (unrecognized sect ion and content) No Status Records FoundNo Status Records Found INFORMATION SOURCE (unrecogn ized section and content) DATE CREATED AUTHOR 12/16/2020 [facility] DATE CREATED AUTHOR AUTHOR'S ORGANIZ ATION 08/06/2021 [facility] FOR RECORDS PERTAINING TO PATIENTS WHO ARE OR HAVE BEEN ENROLLED IN A CHEMICAL DEPENDENCY/SUBSTANCEABUSE PROGRAM, SOME INFORMATION MAY BE OMITTED. This clinical summary was aggregated from multiple sources. Caution should be exercised in using it in the provision of clinical care. This summary normalizes information from multiple sources, and as a consequence, information in this document may materially change the coding, format and clinical context of patient data. In addition, data may be omitted in some cases. CLINICAL DECISIONS SHOULD BE BASED ON THE PRIMARY CLINICAL RECORDS. [employer] provides no warranty or guarantee of the accuracy or completeness of information in this document.
--- NOTE | 2023-03-18 09:01 | US_ITS ---
[address] [address] Patient Name: DWIGHT SANCHEZ MRN: [id number] date: 1965 Sex: M Assigned Patient Location: [facility] Current Patient Location: Accession/Order Number: [id number] Exam Date: 03/18/2023 09:00 Report Date: 03/19/2023 04:01 At the request of: AMBERLY STACK Procedure: US venous doppler LE RT EXAMINATION: US venous doppler LE RT HISTORY: PAIN, ELEVATED D-DIMER ; posterior right thigh and buttock pain COMPARISON: No relevant comparison available. FINDINGS: REGION: Right lower extremity THROMBI: None. COMPRESSIBILITY: Normal compressibility. FLOW: Normal waveform and antegrade flow between 5 and 20 cm/s. OTHER: None. US/US venous doppler LE RT IMPRESSION: 1. No deep vein thrombus within the right lower extremity. 2. No suspicious findings within posterior right thigh area of pain. Electronically authenticated by: PAULO MEAD Date: 03/19/2023 04:01
== END 2023-03-18 08:51 | disposition home or self-care (01) ==
LOC: RAD 08:52
PROVIDERS: PCP Family Medicine; Visit Provider Emergency Medicine
DX: M79.604 Pain in right leg (principal); R79.89 Other specified abnormal findings of blood chemistry
CPT/HCPCS: 93971